=== PATIENT | male | born 1970 | race Caucasian/White ===

== ENCOUNTER 2017-06-17 12:41 | Inpatient (IN) | payer OTHER ==
[2017-06-17 13:11] LABS: ADD MAN DIFF? NO
[2017-06-17] MEDS: dilTIAZem IV PUSH 25 MG/5 ML VIAL IVP (13:11)
[2017-06-17 13:16] LABS: BASO % 1 % (0-3); EOS # 0.1 x10^3/uL (0.0-0.7); EOS % 1 % (0-3); HEMOGLOBIN 16.3 g/dL (13.0-17.5); LYMPH # 1.8 x10^3/uL (1.0-4.8); LYMPH % 31 % (24-48); MEAN CORPUSCULAR HEMOGLOBIN 32 pg (25-35); MEAN CORPUSCULAR HGB CONC 33 g/dL (31-37); MEAN CORPUSCULAR VOLUME 97 fL (79-100); MONO # 0.6 x10^3/uL (0.0-1.1); MONO % 10 % (0-9); NEUT # 3.3 x10^3uL (1.8-7.7); NEUT % 57 % (31-73); PLATELET COUNT 278 x10^3/uL (140-400); RED BLOOD COUNT 5.06 x10^6/uL (4.30-5.70); RED CELL DISTRIBUTION WIDTH 14.3 % (11.5-14.5); WHITE BLOOD COUNT 5.7 x10^3/uL (4.0-11.0)
[2017-06-17] MEDS: ASPIRIN CHEWABLE 81 MG TABLET. PO (13:16)
[2017-06-17] MEDS: IV NORMAL SALINE 1000ML BAG 1,000 ML IV (13:19)
[2017-06-17 13:33] LABS: ANION GAP 8 (6-14); BLOOD UREA NITROGEN 14 mg/dL (8-26); BUN/CREATININE RATIO 13 (6-20); CALCIUM 8.7 mg/dL (8.5-10.1); CARBON DIOXIDE 31 mmol/L (21-32); CHLORIDE 103 mmol/L (98-107); CREATININE 1.1 mg/dL (0.7-1.3); GFR 71.8; GLUCOSE 78 mg/dL (70-99); POTASSIUM 4.2 mmol/L (3.5-5.1); SODIUM 142 mmol/L (136-145)
[2017-06-17 13:40] LABS: ALBUMIN 3.8 g/dL (3.4-5.0); ALBUMIN/GLOBULIN RATIO 1.1 (1.0-1.7); ALK PHOS 50 U/L (46-116); ALT (SGPT) 32 U/L (16-63); AST (SGOT) 25 U/L (15-37); LIPASE 221 U/L (73-393); MAGNESIUM 2.3 mg/dL (1.8-2.4); TOTAL BILIRUBIN 0.5 mg/dL (0.2-1.0); TOTAL PROTEIN 7.4 g/dL (6.4-8.2)
[2017-06-17 13:41] LABS: TROPONINI < 0.017 ng/mL (0.000-0.055)
[2017-06-17 13:44] LABS: NT-PRO BNP 85 pg/mL (0-124)
[2017-06-17] MEDS ORDERED: AMIODARONE 150 MG/3 ML VIAL IVP (14:00)
[2017-06-17] MEDS: AMIODARONE 150 MG in IV DEXTROSE 5% 100 ML IV (14:20)
[2017-06-17] MEDS: AMIODARONE 900 MG in IV DEXTROSE 5% 500 ML IV (14:38)
[2017-06-17] MEDS ORDERED: ACETAMINOPHEN 325 MG TABLET. PO (17:30)
[2017-06-17] MEDS ORDERED: ONDANSETRON PF 4 MG/2 ML VIAL. IV (17:30)
== END 2017-06-18 00:01 | disposition left against medical advice (07) | DRG 308 ==
LOC: ER 12:41 → 2 NORTH 14:50
DX: I48.91 Unspecified atrial fibrillation (principal); I50.31 Acute diastolic (congestive) heart failure; I48.92 Unspecified atrial flutter; Z53.21 Procedure and treatment not carried out due to patient leaving prior to being seen by health care provider; Z87.820 Personal history of traumatic brain injury
CPT/HCPCS: 36415; 71045; 80053; 83690; 83735; 83880; 84484; 85025; 93005; J0282; J3490; J7030